=== PATIENT | male | born 1995 | race Caucasian/White ===

== ENCOUNTER 2017-01-25 10:02 | Observation (INO) ==
--- NOTE | 2017-01-25 11:08 | Emergency Department Note ---
Arrival - Arrival Chief Complaint: Extremity Problem Stated Complaint: thumb infection ED Nursing Triage Note: Pt c/o infection to his right thumb. Pt was seen here on Wednesday but has not become more swollen. Mode of Arrival: Ambulatory Limitations: No Limitations Source: Patient, Old Records Reviewed, RN Notes Reviewed Time Seen by Provider: 01/25/17 10:18 - History of Present Illness HPI Narrative: 21-year-old white male presents to ED with chief complaint of right thumb infection. He was seen in the ER 3 days ago, and had an I&D to the area. He returns today because symptoms are worse. Pain is worse. No PCP. Has not contacted surgery as instructed if symptoms worsen. No previous chronic health problems per patient, although blood pressure today is 160/102. Allergies/Adverse Reactions: Allergies Allergy/AdvReac Type Severity Reaction Status Date / Time No Known Allergies Allergy Unverified 01/21/17 18:38 Home Medications: Home Medications Medication Instructions Recorded Confirmed Type Sulfameth/Trimeth 800-160 Tab 1 tablet PO BID #10 tablet 01/21/17 01/25/17 Rx [Bactrim DS Tab] Review of System - Review of System 12 point system: reviewed and no additional remarkable complaints except as stated - Review of System Skin: Present: other (Abscess to end of right thumb) Medical,Surgical,& Family Hx - Medical History Medical History: noncontributory - Surgical History Neurologic Surgeries: Patient denies: Neurologic Surgery - Social History Smoking Status: Current every day smoker Exam Physical Examination: Exam - General General appearance: alert, in no apparent distress - Head Head exam: Present: atraumatic, normocephalic - Eye Eye exam: Present: normal appearance, PERRL - Neck Neck exam: Present: normal inspection, full ROM - Chest Chest inspection: Present: normal inspection, symmetric chest wall rise - Respiratory Respiratory exam: Present: normal lung sounds bilaterally. Absent: rales, rhonchi, wheezes - Cardiovascular Cardiovascular exam: Present: regular rate, normal rhythm, normal heart sounds - Extremities Exam Extremities exam: Present: normal inspection, full ROM, except right thumb as documented below - Neurological Exam Neurological exam: Present: alert, oriented X3 - Psychiatric Psychiatric exam: Present: normal affect, normal mood - Skin Skin exam: Present: Abscess almost completely surrounding the end of the right thumb, fluctuant. Area on the palmar side of the thumb is erythemetous and dark. Circulation is sluggish on the end of the finger. Extremely tender, will not allow palpation of the area. Vital Signs: Vital Signs Temperature 98.6 F 01/25/17 19:44 Pulse Rate 77 01/25/17 22:15 Respiratory Rate 18 01/25/17 22:15 Blood Pressure 128/71 01/25/17 22:15 O2 Sat by Pulse Oximetry 99 01/25/17 22:15 Course - Consultations Time: 12:15 (Cassi at Dr. Lawrence's office notified of pt presence and status) Time: 13:00 (Cassi and Dr. Lawrence in background clarifying pt status.) Time: 13:30 (Dr. Lawrence here to see patient. Will take to surgery this afternoon for I&D) Results - Labs CBC & BMP: 01/25/17 11:13 01/25/17 11:13 Lab Results: I have reviewed the patients labs Disposition Clinical Impression: Abscess of right thumb, Paronychia of right thumb Case discussed with: patient Disposition: Still a Patient
[2017-01-25 11:26] LABS: Basophils % 0.3 % (0.0-0.8); Eosinophils # 0.1 10*3/uL (0.0-0.87); Eosinophils % 0.9 % (0.00-10.9); Hematocrit 37.3 VOL% (42.0-52.0); Hemoglobin 12.8 GM/DL (14.0-18.0); Immature Granulocytes % 0.3 %; Immature Granulocytes Absolute 0.03 #; Mean Corpuscular HGB Conc 34.3 GM/DL (32-36); Mean Corpuscular Hemoglobin 31 PG (27-34); Mean Corpuscular Volume 91.6 FL (87-102); Mean Platelet Volume 9.9 FL (9.6-12.0); Monocytes # 0.9 10*3/uL (0.11-0.8); Monocytes % 8.4 % (1.7-12.7); Neutrophils % 72.1 % (38.7-73.9); Platelet Count 352 T/CUMM (130-400); Red Blood Count 4.07 MC/CUMM (3.8-5.5); Red Cell Distribution Width 12.6 % (9.3-17.3); White Blood Count 11.1 T/CUMM (4-12)
[2017-01-25 11:46] LABS: Albumin 3.9 G/DL (3.4-5.0); Bilirubin,Total 0.4 MG/DL (0.2-1.0); Calcium 8.8 MG/DL (8.5-10.1); Osmolality,Calculated 274.8 MOS/KG (273-304); Potassium 3.8 MMOL/L (3.5-5.1); Total Protein 7.7 G/DL (6.4-8.3)
--- NOTE | 2017-01-25 13:58 | Orthopedic History & Physical ---
History of Present Illness Chief complaint: felon rt thumb History of present illness: Mr. Ragsdale is a 21 year old male See dictated reports Home Medications Medication Instructions Recorded Confirmed Type Sulfameth/Trimeth 800-160 Tab 1 tablet PO BID #10 tablet 01/21/17 01/25/17 Rx [Bactrim DS Tab] Allergies Allergy/AdvReac Type Severity Reaction Status Date / Time No Known Allergies Allergy Unverified 01/21/17 18:38 Medical,Surgical,& Family Hx - Surgical History Neurologic Surgeries: Patient denies: Neurologic Surgery - Social History Smoking Status: Current every day smoker Exam - Constitutional Vitals: Period Temp Pulse Resp BP Sys/Pierre Pulse Ox Last 24 Hr 98.5 F-98.5 F 93-105 18-20 146-160/83-102 97 Results - Labs CBC & BMP: 01/25/17 11:13 01/25/17 11:13
[2017-01-25] MEDS ORDERED: FAMOTIDINE 20 MG/2 ML VIAL IV ONE ×2 (15:17→15:28)
[2017-01-25] MEDS ORDERED: METOCLOPRAMIDE 10 MG/2 ML VIAL IV ONE (15:17)
[2017-01-25] MEDS ORDERED: METOCLOPRAMIDE 10 MG/2 ML VIAL ONE (15:28)
[2017-01-25] MEDS: LACTATED RINGERS 1,000 ML IV SCH ×2 (15:48→20:22)
[2017-01-25] MEDS ORDERED: ONDANSETRON 4 MG/2 ML VIAL IV PRN (16:29)
[2017-01-25] MEDS ORDERED: MAGNESIUM HYDROXIDE SUSP 30 ML UDCUP PO PRN (16:29)
[2017-01-25] MEDS ORDERED: PROMETHAZINE 25 MG/1 ML VIAL IM PRN (16:29)
[2017-01-25] MEDS ORDERED: MORPHINE 2 MG/1 ML SYRINGE IV PRN (16:37)
--- NOTE | 2017-01-25 17:19 | Anesthesia Post-Op ---
Anesthesia Post OP - Post Ansesthetic Evaluation Patient seen in post op: Yes Resp: within normal limits CV: within normal limits Mental: within normal limits Temp: within normal limits [id number]: within normal limits Nausea and Vomiting: within normal limits Pain: within normal limits
[2017-01-25] MEDS ORDERED: MIDAZOLAM 2 MG/2 ML VIAL ONE (17:24)
--- NOTE | 2017-01-25 19:23 | History and Physical Report ---
DATE OF ADMISSION: A 21-year-old white male presented to [facility] emergency room with infection to right thumb. He h ad no reported history of trauma or injury. He was seen in the emergency room four days ago, diagno sed with paronychia or possible felon by Dr. Abel, started on Bactrim. It did not improve, actual ly his pain and swelling and symptoms have gotten worse. This prompted reevaluation today for which I was asked to evaluate. He has poorly remained afebrile. PAST MEDICAL HISTORY: None. MEDICATIONS: Bactrim. ALLERGIES: None PHYSICAL EXAMINATION GENERAL: A well-developed, well-nourished male. HEENT: Within normal limits. CHEST: Clear. HEART: Regular rate and rhythm ABDOMEN: Soft, nontender. EXTREMITY: There is no pain or problems about the left upper or either lower extremity. On the rig ht side, he has marked swelling about the thumb. There is an area of draining pus on the radial asp ect of the thumb distal phalanx. There is erythema extending along the nail matrix and most of whic h is present in palmar aspect of the thumb. He is able to gently flex the IP joint. Sensibility is diminished. There is no extension proximally across the proximal phalanx or MP joint. No other di gits were involved. RADIOGRAPHS: Normal right thumb; these are from previous admission, not today. IMPRESSION: Felon, right thumb. PLAN: I have discussed the diagnosis, which is going to need to be opened up and drained. I have discusse d with him doing this later this afternoon. He reports to be n.p.o. He will likely be admitted for observational stay. Questions were answered. He understands and agrees to proceed.
[2017-01-25] MEDS: VANCOMYCIN INJ 1,000 MG in SODIUM CHLORIDE 0.9% 250 ML IV SCH (19:50)
[2017-01-25] MEDS: SULFAMETHOX/TRIMETHOPRIM 800-160 MG TABLET PO SCH (20:54)
[2017-01-26] MEDS: VANCOMYCIN INJ 1,000 MG in SODIUM CHLORIDE 0.9% 250 ML IV SCH ×2 (05:33→17:28)
[2017-01-26] MEDS: LACTATED RINGERS 1,000 ML IV SCH (06:12)
--- NOTE | 2017-01-26 06:14 | Operative Note ---
DATE: 01/25/2017 PREOPERATIVE DIAGNOSIS: FELON, RIGHT THUMB. POSTOPERATIVE DIAGNOSIS: FELON, RIGHT THUMB. OPERATIVE PROCEDURE: EXCISION AND DRAINAGE, RIGHT THUMB, FELON, COMPLICATED SURGEON: Stuart Lawrence Jr., MD ANESTHESIA: Gordon block. INDICATIONS: A 21-year-old white male with approximately six to seven days history of painful soft tissue swelling and purulent drainage from the distal aspect of the right thumb. There is no histor y of any significant trauma. He was evaluated in the emergency room last week, started on Bactrim, this did not result in any improvement. He returned today with diagnosis with a felon for which I narda yu recommended an incision and drainage. OPERATIVE PROCEDURE: The patient presented to the Operating Room under Gordon block anesthetic. The right upper extremity arm was prepped and draped in the usual sterile manner. He had a large pustule area at the radial a spect of the distal phalanx. The distal phalanx was then sharply incised. The felon was completely decompressed with a longitudinal incision out towards the tip. A large amount of purulent material was within the palmar aspect of the distal thumb. This was removed with rongeur as well as with ir rigation of 2 liters. The erythema on the dorsum of the distal phalanx was incised and did not reve al any purulent material. There was no tracking of the abscess cavity proximal to the IP joint. Th e irrigation wound was packed open with sterile gauze. He was taken to the recovery room in stable condition.
[2017-01-26] MEDS: MORPHINE 2 MG/1 ML SYRINGE IV PRN ×3 (07:02→16:21)
--- NOTE | 2017-01-26 07:45 | Orthopedic Progress Note ---
Orthopedics - Subjective Interval history: Dressings dry discussed operative findings will need to start wet-to-dry dressing changes. Patient wants to go home [place]. We will see if he can tolerate normal saline wet-to-dry dressing changes this morning. Exam - Constitutional Vitals: Period Temp Pulse Resp BP Sys/Pierre Pulse Ox Last 24 Hr 96.9 F-98.6 F 70-93 16-20 97-152/69-97 94-100 Results - Labs CBC & BMP: 01/25/17 11:13 01/25/17 11:13
[2017-01-26] MEDS: SULFAMETHOX/TRIMETHOPRIM 800-160 MG TABLET PO SCH ×2 (09:19→20:25)
[2017-01-27] MEDS: LACTATED RINGERS 1,000 ML IV SCH ×2 (01:15→11:18)
[2017-01-27 07:17] VITALS: BP 92/50
[2017-01-27] MEDS: SULFAMETHOX/TRIMETHOPRIM 800-160 MG TABLET PO SCH (08:49)
--- NOTE | 2017-01-27 09:10 | Orthopedic Progress Note ---
Orthopedics - Subjective Interval history: Tolerated dressing changes yesterday we will do again today and then discharge is growing a staph will keep him on the Bactrim which we are has prescription for and do in in the office dressing change tomorrow afternoon Exam - Constitutional Vitals: Period Temp Pulse Resp BP Sys/Pierre Pulse Ox Last 24 Hr 97.4 F-98.4 F 57-87 14-18 92-150/50-94 93-97 Results - Labs CBC & BMP: 01/25/17 11:13 01/25/17 11:13 Specialty Discharge - Follow Up or Referrals Follow up with: Stuart Lawrence Jr., MD [Physician] -
--- NOTE | 2017-01-27 09:13 | Discharge Summary ---
Hospital Course - Hospital Course Hospital Course: Admitted for severe hand infection underwent I&D instructed on dressing changes discharged home Diagnosis - Discharge Diagnosis (1) Felon of finger Status: Acute Specialty Discharge - Follow Up or Referrals Follow up with: Stuart Lawrence Jr., MD [Physician] - Discharge Plan - Discharge Data Disposition: Disch To Home/Self Care Condition at Discharge: Stable Discharge Diet: advance to your usual diet Activity: increase activity as tolerated Hygiene: may shower, keep area(s) dry Weight Bearing at Discharge: weight bear as tolerated Driving: not for (While taking narcotics) - Discharge Medications New HYDROcodone/ACETAMIN 7.5-325 [[place] 7.5-325] 1 tablet PO Q4H PRN #25 tablet PRN Reason: Pain Moderate (4-7) Continue Sulfameth/Trimeth 800-160 Tab [Bactrim DS Tab] 1 tablet PO BID #10 tablet - Follow Up or Referral Follow Up: Stuart Lawrence Jr., MD [Physician] - - Forms/Instructions Additional Discharge Instructions: Discharge to home after dressing change today give supplies for normal saline wet to dry at home. [place] for pain continue with the Bactrim follow-up tomorrow January 28 for dressing change. Exam - Constitutional Vitals: Period Temp Pulse Resp BP Sys/Pierre Pulse Ox Last 24 Hr 97.4 F-98.4 F 57-87 14-18 92-150/50-94 93-97 Discharge Results Procedures and tests throughout hospitalization: Pending Orders 01/25/17 Abscess Culture Routine Anaerobic Culture Routine Labs on day of discharge: Preliminary micro results at discharge 01/25/17 Unknown Abscess Culture - Preliminary Hand - Right Gram Positive Cocci DS: Provider Date of admission: 01/25/17 13:59 Primary care physician: . No PCP Attending physician on admission: Stuart Lawrence Jr., MD Discharging clinician: Stuart Lawrence Jr., MD
== END 2017-01-27 10:50 | disposition home or self-care (01) ==
LOC: N.EDINP 10:02 → N.ED 10:02 → N.SDSINP 14:37 → N.3E 18:05
PROVIDERS: ADMIT Orthopaedic Surgery; ATTEND Orthopaedic Surgery